=== PATIENT | male | born 1965 | race Caucasian/White ===

== ENCOUNTER → 2021-01-02 | Outpatient (CLI) | payer MEDICARE, OTHER ==
[~2021-01-02] MED LIST: ENDOCET 5-3251 EACH PO; ZOFRAN ODT 4 MG4 MG SL
== END ==
LOC: RAD 14:06
DX: M54.2 Cervicalgia (principal); M25.511 Pain in right shoulder; G89.29 Other chronic pain
CPT/HCPCS: 72040; 73030

== ENCOUNTER → 2022-05-14 | Outpatient (CLI) | payer MEDICARE, OTHER | LOC: KOH-I 09:09 | DX: M25.552 Pain in left hip (principal) | CPT/HCPCS: 73502 ==